=== PATIENT | female | born 1985 | race Two or more races ===

== ENCOUNTER 2024-10-01 19:27 | Emergency (ER) | payer OTHER ==
[~2024-10-01] VITALS: Ht 162.6 cm; Wt 74.8 kg
[2024-10-01] MEDS ORDERED: VENLAFAXINE H37.5 MG PO (20:51)
[2024-10-01] MEDS ORDERED: TRAZODONE HCL50 MG PO (20:51)
[2024-10-01] MEDS ORDERED: QUETIAPINE FUMA25 MG PO (20:51)
[2024-10-01] MEDS ORDERED: LORAZEPAM1 MG PO (20:51)
[2024-10-01] MEDS ORDERED: ATORVASTATIN CA20 MG PO (20:52)
[2024-10-01] MEDS ORDERED: DIVALPROEX SOD500 M1 PO (20:52)
[2024-10-02 00:31] LABS: HEMATOCRIT 37.2 % (36.0-45.00); HEMOGLOBIN 12.6 g/dL (12.0-15.00); MEAN CORPUSCULAR HEMOGLOBIN 29.7 pg (27.00-32.0); MEAN CORPUSCULAR HGB CONC 33.8 g/dl (32.0-36.0); PLATELET COUNT 211 K/uL (150-450); RED BLOOD COUNT 4.23 M/uL (4.00-6.00); RED CELL DISTRIBUTION WIDTH 13.3 % (11.5-14.5)
[2024-10-02 00:56] LABS: ALBUMIN 3.7 gm/dL (3.4-5.0); BILIRUBIN TOTAL 0.34 mg/dL (0.3-1.2); CREATININE SERUM 0.81 mg/dL (0.55-1.02); GFR 78.72; GLOBULINA 3.8 G/DL (2.4-3.5); POTASSIUM 3.79 mEq/L (3.5-5.1); TOTAL PROTEIN 7.5 gm/dL (6.4-8.2)
[2024-10-02 01:49] LABS: URINE APPEARANCE Cloudy; URINE BILIRRUBIN Negative (NEGATIVE); URINE BLOOD NHT; URINE COLOR Yellow; URINE GLUCOSE Negative (NEGATIVE); URINE KETONE Trace (NEGATIVE); URINE LEUKOCYTE Moderate; URINE NITRATE Negative; URINE UROBILINOGEN 0.2 E.U./dl
[2024-10-02 02:37] LABS: URINE BACTERIA 56.2 uL (0.0-1933); URINE EPITHELIAL CELLS 1.4 uL (0.0-38.8); URINE PROTEIN 100 (NEGATIVE); URINE RBC 75.4 uL (0.0-20.8); URINE WBC 1546.6 uL (0.0-23.2)
== END 2024-10-02 03:37 | disposition home or self-care (01) ==
LOC: ER 19:29
PROVIDERS: Preventive Medicine Public Health & General Preventive Medicine
DX: N39.0 Urinary tract infection, site not specified (principal)

== ENCOUNTER 2024-12-02 15:00 | Emergency (ER) | payer OTHER ==
[~2024-12-02] VITALS: Ht 162.6 cm; Wt 78.5 kg
[~2024-12-02 15:00] MED LIST: ATORVASTATIN CA20 MG PO; DIVALPROEX SOD500 M1 PO; LORAZEPAM1 MG PO; QUETIAPINE FUMA25 MG PO; TRAZODONE HCL50 MG PO; VENLAFAXINE H37.5 MG PO
[2024-12-02] MEDS ORDERED: HALOPERIDOL2 MG/1 ML (15:20)
[2024-12-02] MEDS ORDERED: ACYCLOVIR15 GM (15:21)
[2024-12-02] MEDS ORDERED: TETANUS & DIPHTHERIA TOX,ADULT 0.5 ML VIAL IM STA (16:38)
[2024-12-02] MEDS ORDERED: CEFTRIAXONE SODIUM 1,000 MG VIAL IM STA (16:38)
[2024-12-02] MEDS ORDERED: LIDOCAINE HCL 1% 10ML VIAL ONE (16:40)
[2024-12-02] MEDS ORDERED: CEFTRIAXONE SODIUM 1,000 MG VIAL ONE (16:40)
[2024-12-02] MEDS ORDERED: DIPHTH,PERTUSS(ACELL),TET VAC 0.5 ML SYRINGE IM ONE (16:40)
== END 2024-12-02 17:05 | disposition home or self-care (01) ==
LOC: ER 15:08
DX: S61.258A Open bite of other finger without damage to nail, initial encounter (principal); W64.XXXA Exposure to other animate mechanical forces, initial encounter; Y93.89 Activity, other specified; Y92.89 Other specified places as the place of occurrence of the external cause; Y99.8 Other external cause status; Z88.8 Allergy status to other drugs, medicaments and biological substances
CPT/HCPCS: 90471; 90714; J1670